=== PATIENT | male | born 1945 | race Two or more races ===

== ENCOUNTER 2018-04-14 08:13 | Outpatient (CLI) | payer OTHER | END 2018-04-14 08:19 | disposition home or self-care (01) | LOC: TOM 08:13 | DX: K56.50 Intestinal adhesions [bands], unspecified as to partial versus complete obstruction (principal); Q41.9 Congenital absence, atresia and stenosis of small intestine, part unspecified; Z79.01 Long term (current) use of anticoagulants; K56.600 Partial intestinal obstruction, unspecified as to cause ==